=== PATIENT | female | born 1955 | race American Indian/Alaskan Native ===

== ENCOUNTER 2021-01-06 14:13 | Emergency (ER) | payer SELFPAY ==
[2021-01-06] MEDS ORDERED: Lidocaine 1% 30 ML SDV INJECT ONE (14:29)
[2021-01-06] MEDS ORDERED: Acetaminophen 500 MG Tab PO ONE (14:29)
[2021-01-06 14:31] VITALS: BP 160/96; PULSE 113
--- NOTE | 2021-01-06 14:32 | EDM.PDOC ---
ED HPI GENERAL MEDICAL PROBLEM - General Chief Complaint: Bite:Animal, Insect Stated Complaint: [id number] BIT BY DOG Time Seen by Provider: 01/06/21 14:30 Source of Information: Reports: Patient, RN, RN Notes Reviewed History Limitations: Reports: No Limitations - History of Present Illness INITIAL COMMENTS - FREE TEXT/NARRATIVE: Nirmala is a 65 y/o female who presents to the ED via personal vehicle with complaints of laceration to her right lateral, anterior forearm following a dog bite. The patient states the dog is unknown to her but she was shown papers proving vaccination status by the owners of the dog; she does not want RIG or rabies vaccination. She states the injury occurred approximately 20 minutes prior to her arrival at this facility. She has taken no medications for the injury. She is uncertain of the date of her last tetanus vaccine. Right Arm Pain Score (Numeric/FACES): 10 - Related Data Allergies Allergy/AdvReac Type Severity Reaction Status Date / Time Penicillins Allergy Itching Verified 07/31/14 17:02 Home Meds: Home Meds Aspirin [Freddy Chewable Aspirin] 81 mg PO DAILY 07/31/14 [History] DULoxetine HCl [Cymbalta] 120 mg PO DAILY 07/31/14 [History] Gabapentin [Neurontin] 600 mg PO DAILY 07/31/14 [History] Loratadine [Claritin] 10 mg PO ASDIRECTED PRN 07/31/14 [History] Multivitamin [Multivitamins] 1 tab PO DAILY 07/31/14 [History] Omeprazole 20 mg PO DAILY 07/31/14 [History] Vitamin B Complex 1 tab PO DAILY 07/31/14 [History] Social & Family History - Living Situation & Occupation Living situation: Reports: , with Spouse ED ROS GENERAL - Review of Systems Review Of Systems: Comprehensive ROS is negative, except as noted in HPI. ED EXAM, ANIMAL BITE - Physical Exam Exam: See Below Exam Limited By: No Limitations General Appearance: Alert, Mild Distress (Pain to right arm from dog bite), Thin Eye Exam: Bilateral Eye: EOMI, Normal Inspection, PERRL (3mm) Ears: Normal External Exam, Hearing Grossly Normal Nose: Normal Inspection, Normal Mucosa, No Blood Throat/Mouth: Normal Inspection, Normal Oropharynx, Normal Voice, No Airway Compromise Head: Normocephalic Neck: Normal Inspection, Supple, Non-Tender, Full Range of Motion Respiratory/Chest: No Respiratory Distress, Lungs Clear, Normal Breath Sounds, No Accessory Muscle Use, Chest Non-Tender Cardiovascular: Normal Peripheral Pulses, Regular Rate, Rhythm, No Edema, No Gallop, No JVD, No Murmur, No Rub, Tachycardia Peripheral Pulses: 2+: Radial (L), Radial (R) GI/Abdominal: Normal Bowel Sounds, Soft, Non-Tender (Female) Exam: Deferred Rectal (Female) Exam: Deferred Back Exam: Normal Inspection, Full Range of Motion Extremities: Normal Range of Motion, No Pedal Edema, Normal Capillary Refill, Arm Pain (Dog bite to right lateral, anterior forearm). No: Joint Swelling, Increased Warmth, Mottled, Pallor, Redness Neurological: Alert, Oriented, CN II-XII Intact, Normal Cognition, Normal Gait, Normal Reflexes, No Motor/Sensory Deficits Psychiatric: Normal Affect, Normal Mood Skin Exam: Normal Color, Warm/Dry. No: Ecchymosis, Jaundice, Mottled, Pallor, Petechiae Lymphadenopathy: Bilateral: No Adenopathy ED ANIMAL BITE PROCEDURES - Laceration/Wound Repair Right Posterior Lateral Distal Arm Lac/Wound Length In cm: 2.5 Appearance: Superficial Distal NVT: Neuro & Vascular Intact, No Tendon Injury Anesthetic Type: Local Local Anesthesia - Lidocaine (Xylocaine): 1% Plain Local Anesthetic Volume: 5cc Skin Prep: Chlorhexidine (Hibiciens), Saline, Sterile Drape Saline Irrigation (cc's): 3 Exploration/Debridement/Repair: Wound Explored, In a Bloodless Field, Explored to Base, No Foreign Material Found, Wound Margins Revised Closed With: Sutures Suture Size: 4-0 # of Sutures: 4 Suture Type: Prolene Drain Placement: No Sterile Dressing Applied: Nurse Tetanus Status Addressed: Yes Complications: No Course - Vital Signs Last Recorded V/S: Last Vital Signs Temp 97.9 F 01/06/21 14:27 Pulse 113 H 01/06/21 14:27 Resp 16 01/06/21 14:27 BP 160/96 H 01/06/21 14:27 Pulse Ox 97 01/06/21 14:27 - Orders/Labs/Meds Meds: Medications Discontinued Medications Generic Name Dose Route Start Last Admin Trade Name Freq PRN Reason Stop Dose Admin Acetaminophen 1,000 mg 01/06/21 14:29 01/06/21 14:41 Acetaminophen 500 Mg Tab PO 01/06/21 14:30 1,000 mg ONETIME ONE Administration Bacitracin 1 dose 01/06/21 15:10 01/06/21 15:18 Bacitracin Oint 1 Gm U/D Packet TOP 01/06/21 15:11 1 dose ONETIME ONE Administration Diphtheria/Tetanus/Acell Pertussis 0.5 ml 01/06/21 14:49 01/06/21 15:19 Diphtheria,Pertussis(Acell),Tetanus Vaccine 0.5 Ml Syringe IM 01/06/21 14:50 0.5 ml .ONCE ONE Administration Lidocaine HCl 30 ml 01/06/21 14:29 01/06/21 14:41 Lidocaine 1% 30 Ml Sdv INJECT 01/06/21 14:30 30 ml ONETIME ONE Administration - Re-Assessments/Exams Free Text/Narrative Re-Assessment/Exam: 01/06/21 Boostrix administered. Laceration repaired loosely with sutures without complication. Laceration care reviewed with patient. Will treat dog bite prophylactically with doxycycline and clindamycin. Red flag signs and symptoms which would warrant reevaluation reviewed. Patient verbalized understanding and agreement with the plan of care. Departure - Departure Time of Disposition: 15:09 Disposition: Home, Self-Care 01 Condition: Fair Clinical Impression: Dog bite of extremity Laceration of right forearm without complication Qualifiers: Encounter type: initial encounter Qualified Code(s): S51.811A - Laceration without foreign body of right forearm, initial encounter - Discharge Information *PRESCRIPTION DRUG MONITORING PROGRAM REVIEWED*: Not Applicable *COPY OF PRESCRIPTION DRUG MONITORING REPORT IN PATIENT ULI: Not Applicable Instructions: Laceration Care, Adult, Animal Bite, Adult Forms: ED Department Discharge Additional Instructions: Rx: doxycycline Rx: clindamycin 1.) Take all of your antibiotic until gone, even as symptoms improve. 2.) Follow up with any primary care facility for suture removal in 7 days. 3.) Keep wound clean and dry. 4.) Monitor for signs of infection, including increased redness, swelling, pain, or white/[place] drainage.
[2021-01-06] MEDS ORDERED: Diphtheria,Pertussis(Acell),Tetanus Vaccine 0.5 ML Syringe IM ONE (14:49)
[2021-01-06] MEDS ORDERED: Bacitracin Oint 1 GM U/D Packet TOP ONE (15:10)
== END 2021-01-06 15:25 | disposition home or self-care (01) ==
LOC: DL.ED 14:13
DX: S51.851A Open bite of right forearm, initial encounter (principal); Z88.0 Allergy status to penicillin; Z79.82 Long term (current) use of aspirin; Z79.899 Other long term (current) drug therapy; Z23 Encounter for immunization; W54.0XXA Bitten by dog, initial encounter
CPT/HCPCS: 12001; 90471; 90715; 99283; A9270

== ENCOUNTER 2022-10-15 15:30 | Inpatient (IN) | payer MEDICAID, MEDICARE ==
[2022-10-15] MEDS ORDERED: Sodium Chloride 0.9% 10 ML Syringe FLUSH PRN (15:59)
[2022-10-15] MEDS ORDERED: Sodium Chloride 0.9% 1,000 ML IV ONE (16:06)
[2022-10-15 16:08] LABS: HEMATOCRIT 34.9 % (37.0-47.0); HEMOGLOBIN 12.4 g/dL (12.0-16.0); MEAN CORPUSCULAR HEMOGLOBIN 32.5 pg (27.0-34.0); MEAN CORPUSCULAR HGB CONC 35.5 g/dL (33.0-35.0); MEAN CORPUSCULAR VOLUME 91.4 fL (80-100); PLATELET COUNT,PLT 460 10^3/uL (150-450); RED BLOOD CELL COUNT 3.82 10^6/uL (4.2-5.4); WHITE BLOOD CELL COUNT,WBC 19.3 10^3/uL (5.0-10.0)
[2022-10-15 16:18] LABS: BASOPHILS PERCENT AUTO 0.3 % (0.0-1.0); EOSINOPHILS PERCENT AUTO 0.1 % (1.0-3.0); LYMPHOCYTES PERCENT AUTO 5.3 % (20.5-50.1); MONOCYTES PERCENT AUTO 8.7 % (2-8); NEUTROPHILS PERCENT AUTO 85.6 % (42.2-75.2)
[2022-10-15 16:27] LABS: BAND PERCENT MAN 10 %; LYMPHOCYTES PERCENT MAN 6 % (20-50); MONOCYTES PERCENT MAN 5 % (2-8); SEG NEUTROPHILS PERCENT MAN 79 % (42-75)
[2022-10-15 16:37] LABS: A/G RATIO 0.54; ALANINE AMINOTRANSFERASE,ALT 14 U/L (14-59); ALBUMIN 2.2 g/dL (3.4-5.0); ALKALINE PHOSPHATASE 96 U/L (46-116); AMYLASE 22 U/L (25-115); ANION GAP 9.4 mEq/L (7-13); ASPARTATE AMNIOTRANSFERASE,AST 13 U/L (15-37); BILIRUBIN TOTAL 0.9 mg/dL (0.2-1.0); BLOOD UREA NITROGEN,BUN 7 mg/dL (7-18); BUN/CREATININE RATIO 13.5 (No establ ref range); C-REACTIVE PROTEIN 22.3 mg/dL (0.0-0.9); CALCIUM 8.8 mg/dL (8.5-10.1); CARBON DIOXIDE,CO2 29 mmol/L (21-32); CHLORIDE,CL 94 mmol/L (98-107); CREATININE 0.52 mg/dL (0.55-1.02); ESTIMATED GFR 102 mL/min (>=60); ETHANOL BLOOD MEDICAL < 3 mg/dL (0); GLUCOSE RANDOM 104 mg/dL (70-99); LIPASE 48 U/L (73-393); MAGNESIUM 1.3 mg/dL (1.8-2.4); POTASSIUM,K 3.4 mmol/L (3.5-5.1); PROTEIN TOTAL,TP 6.3 g/dL (6.4-8.2); SODIUM,NA 129 mmol/L (136-145); TSH ULTRASENSITIVE 1.37 uIU/mL (0.36-3.74)
[2022-10-15 17:17] LABS: APPEARANCE,URINE CLEAR (CLEAR); BILIRUBIN,URINE SMALL (NEGATIVE); COLOR,URINE YELLOW (YELLOW); GLUCOSE,URINE NEGATIVE (NEGATIVE); KETONES,URINE 40 (NEGATIVE); LEUKOCYTE ESTERASE,URINE NEGATIVE (NEGATIVE); NITRITE,URINE NEGATIVE (NEGATIVE); OCCULT BLOOD,URINE TRACE-INTACT (NEGATIVE); PROTEIN,URINE NEGATIVE (NEGATIVE)
[2022-10-15 17:24] LABS: BACTERIA,URINE OCCASIONAL /HPF (0-FEW/HPF); EPITHELIAL CELLS,URINE FEW /HPF (NOT SEEN); MUCUS,URINE OCCASIONAL /LPF (NOT SEEN); RBC,URINE 0-5 /HPF (0-5); WBC,URINE NOT SEEN /HPF (0-5/HPF)
[2022-10-15] MEDS ORDERED: Ketorolac 30 MG/ML SDV IVPUSH ONE (17:26)
[2022-10-15] MEDS ORDERED: Magnesium Sulfate/Water 2 GM in Premix Bag 1 BAG IV ONE (17:30)
[2022-10-15] MEDS ORDERED: Levofloxacin/Dextrose 5%-Water 750 MG in Premix Bag 1 BAG IV ONE (17:30)
[2022-10-15] MEDS ORDERED: Acetaminophen 325 MG Tab PO PRN (18:58)
[2022-10-15] MEDS ORDERED: Albuterol/Ipratropium 3.0-0.5 MG/3 ML Neb Soln NEB PRN (18:58)
[2022-10-15] MEDS ORDERED: Polyethylene Glycol 3350 Powder 17 GM Packet PO PRN (18:58)
[2022-10-15] MEDS ORDERED: Ondansetron 4 MG/2 ML SDV IVPUSH PRN (18:58)
[2022-10-15] MEDS ORDERED: Bisacodyl 5 MG Tab PO PRN (18:58)
[2022-10-15] MEDS ORDERED: Magnesium Hydroxide 400 MG/5 ML Susp 30 ML Cup PO PRN (18:58)
[2022-10-15] MEDS ORDERED: Acetaminophen/oxyCODONE 325-5 MG Tab PO PRN (18:58)
[2022-10-15] MEDS ORDERED: Metoprolol Tartrate 5 MG/5 ML SDV IVPUSH PRN (19:03)
[2022-10-15] MEDS ORDERED: hydrALAZINE 20 MG/ML SDV IVPUSH PRN (19:03)
[2022-10-15] MEDS ORDERED: LORazepam 2 MG/ML SDV IVPUSH ONE (19:09)
[2022-10-15] MEDS ORDERED: Flumazenil 0.1 MG/ML 5 ML MDV IVPUSH PRN (19:09)
[2022-10-15] MEDS ORDERED: MVI, Adult with Vitamin K 10 ML, Folic Acid 1 MG, Thiamine 100 MG in Lactated Ringers 1... IV ONE ×4 (19:30)
[2022-10-15] MEDS: HYDROmorphone 0.5 MG/0.5 ML Syringe IVPUSH PRN (19:43)
[2022-10-15 20:08] LABS: AMPHETAMINES,URINE NEGATIVE (NEGATIVE); BARBITURATES,URINE NEGATIVE (NEGATIVE); BENZODIAZEPINE,URINE NEGATIVE (NEGATIVE); MDMA (ECSTASY), URINE NEGATIVE (NEGATIVE); METHADONE,URINE NEGATIVE (NEGATIVE); METHAMPHETAMINES,URINE NEGATIVE (NEGATIVE); OPIATES,URINE NEGATIVE (NEGATIVE); OXYCODONE,URINE NEGATIVE (NEGATIVE); PHENCYCLIDINE,URINE NEGATIVE (NEGATIVE); TCA,URINE NEGATIVE (NEGATIVE)
[2022-10-15] MEDS: guaiFENesin 600 MG Tab.ER PO SCH (20:59)
[2022-10-15] MEDS: Omeprazole 20 MG Cap.CR PO SCH (20:59)
[2022-10-15] MEDS: Temazepam 15 MG Cap PO PRN (20:59)
[2022-10-16] MEDS: guaiFENesin/Dextromethorphan 100-10 MG/5 ML Soln 5 ML Cup PO PRN (04:36)
[2022-10-16] MEDS: HYDROmorphone 0.5 MG/0.5 ML Syringe IVPUSH PRN ×2 (04:38→17:32)
[2022-10-16] MEDS: guaiFENesin 600 MG Tab.ER PO SCH ×3 (04:41→20:39)
[2022-10-16] MEDS: Omeprazole 20 MG Cap.CR PO SCH ×3 (04:42→20:40)
[2022-10-16 06:23] LABS: HEMATOCRIT 32.6 % (37.0-47.0); HEMOGLOBIN 11.3 g/dL (12.0-16.0); MEAN CORPUSCULAR HGB CONC 34.7 g/dL (33.0-35.0); MEAN CORPUSCULAR VOLUME 92.4 fL (80-100); PLATELET COUNT,PLT 496 10^3/uL (150-450); RED BLOOD CELL COUNT 3.53 10^6/uL (4.2-5.4); WHITE BLOOD CELL COUNT,WBC 14.9 10^3/uL (5.0-10.0)
[2022-10-16 06:31] LABS: BASOPHILS PERCENT AUTO 0.2 % (0.0-1.0); EOSINOPHILS PERCENT AUTO 0.4 % (1.0-3.0); LYMPHOCYTES PERCENT AUTO 5.4 % (20.5-50.1); MONOCYTES PERCENT AUTO 8.7 % (2-8); NEUTROPHILS PERCENT AUTO 85.3 % (42.2-75.2)
[2022-10-16 06:48] LABS: ALBUMIN 1.7 g/dL (3.4-5.0); ANION GAP 9.9 mEq/L (7-13); BILIRUBIN TOTAL 0.8 mg/dL (0.2-1.0); BUN/CREATININE RATIO 11.6 (No establ ref range); CALCIUM 8.2 mg/dL (8.5-10.1); CREATININE 0.43 mg/dL (0.55-1.02); EST CRCL DRUG DOSING (CG) 90.91 mL/min; MAGNESIUM 1.6 mg/dL (1.8-2.4); POTASSIUM,K 2.9 mmol/L (3.5-5.1); PROTEIN TOTAL,TP 5.4 g/dL (6.4-8.2)
[2022-10-16 06:50] LABS: A/G RATIO 0.46; C-REACTIVE PROTEIN 17.5 mg/dL (0.0-0.9)
[2022-10-16 07:15] LABS: LYMPHOCYTES PERCENT MAN 3 % (20-50); MONOCYTES PERCENT MAN 10 % (2-8); SEG NEUTROPHILS PERCENT MAN 87 % (42-75)
[2022-10-16] MEDS ORDERED: Magnesium Sulfate/Water 2 GM in Premix Bag 1 BAG IV ONE ×2 (08:12→15:00)
[2022-10-16] MEDS: DULoxetine 30 MG Cap PO SCH (08:39)
[2022-10-16] MEDS: Saccharomyces Boulardii (Probiotic) 250 MG Cap PO SCH (08:40)
[2022-10-16] MEDS: Cholecalciferol (Vitamin D3) 25 MCG Tab PO SCH (08:40)
[2022-10-16] MEDS ORDERED: CHOLECALCIFEROL 10 MCG PO SCH (09:00)
[2022-10-16] MEDS ORDERED: cefTRIAXone 2 GM Vial IVPUSH ONE (09:00)
[2022-10-16] MEDS ORDERED: Cyanocobalamin (Vitamin B12) 1,000 MCG Tab PO SCH (09:00)
[2022-10-16] MEDS: Azithromycin 500 MG in Sodium Chloride 0.9% 250 ML IV SCH (09:14)
[2022-10-16] MEDS: Lidocaine 5% 700 MG Patch TRDERM SCH (13:05)
[2022-10-16 17:21] LABS: POTASSIUM,URINE RANDOM 32.9 mmol/L (No establ ref range)
[2022-10-16] MEDS: Potassium Chloride 10 MEQ Tab.ER PO SCH (17:31)
[2022-10-16] MEDS: Temazepam 15 MG Cap PO PRN (20:40)
[2022-10-16] MEDS ORDERED: Mirtazapine 15 MG Tab PO SCH (21:00)
[2022-10-17] MEDS: guaiFENesin/Dextromethorphan 100-10 MG/5 ML Soln 5 ML Cup PO PRN (05:14)
[2022-10-17 06:31] LABS: EOSINOPHILS PERCENT AUTO 0.2 % (1.0-3.0); HEMATOCRIT 31.3 % (37.0-47.0); HEMOGLOBIN 10.7 g/dL (12.0-16.0); LYMPHOCYTES PERCENT AUTO 5.9 % (20.5-50.1); MEAN CORPUSCULAR HEMOGLOBIN 32.2 pg (27.0-34.0); MEAN CORPUSCULAR HGB CONC 34.2 g/dL (33.0-35.0); MEAN CORPUSCULAR VOLUME 94.3 fL (80-100); MONOCYTES PERCENT AUTO 8.9 % (2-8); NEUTROPHILS PERCENT AUTO 84.7 % (42.2-75.2); PLATELET COUNT,PLT 530 10^3/uL (150-450); RED BLOOD CELL COUNT 3.32 10^6/uL (4.2-5.4); WHITE BLOOD CELL COUNT,WBC 19.9 10^3/uL (5.0-10.0)
[2022-10-17 06:42] LABS: BASOPHILS PERCENT AUTO 0.3 % (0.0-1.0)
[2022-10-17 06:51] LABS: ALBUMIN 1.7 g/dL (3.4-5.0); ANION GAP 8.2 mEq/L (7-13); BILIRUBIN TOTAL 0.6 mg/dL (0.2-1.0); BUN/CREATININE RATIO 9.8 (No establ ref range); CALCIUM 8.2 mg/dL (8.5-10.1); CREATININE 0.41 mg/dL (0.55-1.02); EST CRCL DRUG DOSING (CG) 95.34 mL/min; MAGNESIUM 1.6 mg/dL (1.8-2.4); POTASSIUM,K 3.2 mmol/L (3.5-5.1); PROTEIN TOTAL,TP 5.4 g/dL (6.4-8.2)
[2022-10-17 07:02] LABS: A/G RATIO 0.46; C-REACTIVE PROTEIN 17.5 mg/dL (0.0-0.9)
[2022-10-17] MEDS: Lidocaine 5% 700 MG Patch TRDERM SCH (08:05)
[2022-10-17] MEDS: Azithromycin 500 MG in Sodium Chloride 0.9% 250 ML IV SCH (08:05)
[2022-10-17] MEDS: Omeprazole 20 MG Cap.CR PO SCH (08:07)
[2022-10-17] MEDS: guaiFENesin 600 MG Tab.ER PO SCH (08:07)
[2022-10-17] MEDS: Cholecalciferol (Vitamin D3) 25 MCG Tab PO SCH (08:07)
[2022-10-17] MEDS: Saccharomyces Boulardii (Probiotic) 250 MG Cap PO SCH (08:07)
[2022-10-17] MEDS: DULoxetine 30 MG Cap PO SCH (08:08)
[2022-10-17] MEDS: Potassium Chloride 10 MEQ Tab.ER PO SCH (08:08)
[2022-10-17] MEDS ORDERED: Magnesium Sulfate/Water 4 GM in Premix Bag 1 BAG IV ONE (10:01)
[2022-10-17] MEDS ORDERED: Potassium Chloride 10 MEQ Tab.ER PO ONE ×2 (11:00→17:00)
[2022-10-17] MEDS ORDERED: Temazepam 15 MG Cap PO PRN (11:14)
[2022-10-17] MEDS: HYDROmorphone 0.5 MG/0.5 ML Syringe IVPUSH PRN (11:30)
[2022-10-17] MEDS ORDERED: Lidocaine 1% 5 ML VIAL INJECT ONE ×2 (11:39→12:13)
[2022-10-17] MEDS ORDERED: Midodrine 2.5 MG Tab PO ONE (12:29)
[2022-10-17 14:44] VITALS: BP 113/41; PULSE 89
[2022-10-17 14:58] LABS: BODY FLUID TYPE THORACENTESIS FLUID
[2022-10-17 16:53] LABS: GLUCOSE,BODY FLUID 3.82
[2022-10-17 16:54] LABS: PROTEIN,BODY FLUID 3.8 mg/dL
[2022-10-17] MEDS ORDERED: LORazepam 2 MG/ML SDV IVPUSH SCH (21:00)
[2022-10-20 10:46] LABS: BASO'S 0 x10-3 ul; EO'S 0 x10-3 ul; LYMPH'S 74 x10-3 ul; MONO'S 74 x10-3 ul; OTHER 0 x10-3 ul; PMN'S 7205 x10-3 ul
== END 2022-10-17 14:10 | DRG 193 ==
LOC: DL.ED 15:30 → UNDOADMIN 17:37 → DL.MS 17:37
PROVIDERS: ADMIT Internal Medicine; ATTEND Internal Medicine
PROC: 0W9B3ZZ Drainage of Left Pleural Cavity, Percutaneous Approach (ICD-10-PCS; principal; 2022-10-17)
DX: J18.9 Pneumonia, unspecified organism (principal); E43 Unspecified severe protein-calorie malnutrition; J90 Pleural effusion, not elsewhere classified; Z68.1 Body mass index [BMI] 19.9 or less, adult; J98.11 Atelectasis; E87.1 Hypo-osmolality and hyponatremia; E83.42 Hypomagnesemia; E78.5 Hyperlipidemia, unspecified; E66.9 Obesity, unspecified; G89.29 Other chronic pain; M54.50 Low back pain, unspecified; E53.8 Deficiency of other specified B group vitamins; G47.00 Insomnia, unspecified; E86.0 Dehydration; F32.9 Major depressive disorder, single episode, unspecified; J43.9 Emphysema, unspecified; D75.839 Thrombocytosis, unspecified; E87.6 Hypokalemia; E87.8 Other disorders of electrolyte and fluid balance, not elsewhere classified; F41.9 Anxiety disorder, unspecified; K21.9 Gastro-esophageal reflux disease without esophagitis; G62.9 Polyneuropathy, unspecified; Z98.890 Other specified postprocedural states; Z79.82 Long term (current) use of aspirin; Z79.899 Other long term (current) drug therapy; Z88.0 Allergy status to penicillin; Z98.84 Bariatric surgery status; Z87.891 Personal history of nicotine dependence
CPT/HCPCS: 32555; 36415; 71045; 71250; 80053; 80305-QW; 80307; 81001; 82042; 82150; 82306; 82945; 83605; 83615; 83690; 83735; 84100; 84133; 84145; 84157; 84300; 84443; 84484; 85025; 86140; 87015; 87040; 87070; 87077; 87116; 87118; 87149; 87206; 89050; 89051; 93005; 93010; 96360; 99284; 99285-25; A9270-GY; J0456; J0696; J1170; J1885; J1956; J2060; J3411; J3475; J3490; J7030; J7050; J7120